=== PATIENT | female | born 1990 | race Caucasian/White ===

== ENCOUNTER 2016-06-24 21:22 | Emergency (ER) | payer SELFPAY ==
[~2016-06-24] VITALS: Ht 152.4 cm; Wt 95.0 kg
[2016-06-24 22:10] VITALS: Ht 152.4 cm; Wt 95.0 kg
[2016-06-24] MEDS ORDERED: ONDANSETRON (ODT) 4 MG TAB ODT STA (23:53)
[2016-06-24 23:59] LABS: URINE BLOOD (Dip) POC 2+ (NEGATIVE)
--- NOTE | 2016-06-25 | ERD ---
ER Documentation Chief Complaint Date/Time DATE: 06/24/16 TIME: 23:57 Chief Complaint Back pain radiates to the upper back, Pain on intercourse HPI 26-year-old female presents here in emergency department for complaints of lower back pain started today, at the last 2 days. Patient is complaining of lower back pain, sharp pain, 4/10 scale, not better or worse with anything. Patient states that she does have some discomfort upon intercourse at times. Patient denies any vaginal discharge. Patient does not have any other sexual partner. Patient does not have any fever or chills. Patient denies any chest or palpitations. Patient denies hematuria or dysuria. Patient denies any trauma in the back. Patient denies any dizziness. LMP 05/20/16 ROS All systems reviewed and are negative except as per history of present illness. Medications Home Meds Reported Medications [none] Unknown Strength No Conflict Check 06/24/16 Allergies Allergies: Coded Allergies: No Known Allergy (Unverified , 06/24/16) PMhx/Soc Medical and Surgical Hx: pt denies Medical Hx History of Surgery: Yes (c section 2015, cholecystectomy) Hx Alcohol Use: No Hx Substance Use: No Hx Tobacco Use: Yes Smoking Status: Light tobacco smoker FmHx Family History: No coronary disease, No diabetes, No other Physical Exam Vitals Vital Signs Date Time Temp Pulse Resp B/P Pulse Ox O2 Delivery O2 Flow Rate FiO2 06/24/16 22:10 98.6 100 18 151/91 99 Physical Exam GENERAL: The patient is well developed and appropriate for usual state of health, in no apparent distress. CHEST: Clear to auscultation bilaterally. There are no rales, wheezes or rhonchi. HEART: Regular rate and rhythm. No murmurs, clicks, rubs or gallops. No S3 or S4. ABDOMEN: Soft, nontender and nondistended. Good bowel sounds. No rebound or guarding. No gross peritonitis. No gross organomegaly or masses. No Burr sign or McBurney point tenderness. BACK: No midline or flank tenderness. EXTREMITIES: Equal pulses bilaterally. There is no peripheral clubbing, cyanosis or edema. No focal swelling or erythema. Full range of motion. Grossly neurovascularly intact. NEURO: Alert and oriented. Cranial nerves 2-12 intact. Motor strength in all 4 extremities with 5/5 strength. Sensation grossly intact. Normal speech and gait. SKIN: There is no apparent rash or petechia. The skin is warm and dry. HEMATOLOGIC AND LYMPHATIC: There is no evidence of excessive bruising or lymphedema. No gross cervical, axillary, or inguinal lymphadenopathy. Result Diagram: 06/25/165 06/25/16 0125 Results 24 hrs Laboratory Tests Test 06/24/16 23:50 06/25/16 00:02 06/25/16 01:25 Urine Bacteria FEW Urine Bilirubin NEGATIVE Urine Clarity CLEAR Urine Color LT. YELLOW Urine Glucose NEGATIVE% Urine Hemoglobin 3+ Urine Ketones NEGATIVE Urine Leukocyte Esterase NEGATIVE Urine Microscopic RBC 10-25/HPF Urine Microscopic WBC 2-5/HPF Urine Nitrite NEGATIVE Urine Specific [place] >=1.030 Urine Squamous Epithelial Cells MODERATE Urine Total Protein NEGATIVE Urine Urobilinogen 0.2 E.U./dL Urine pH 5.5 Bedside Urine Blood 2+ Bedside Urine Glucose (UA) Negative Bedside Urine Ketones (LAB) Negative Bedside Urine Leukocyte Esterase (L Negative Bedside Urine Nitrite (LAB) Negative Bedside Urine Protein (LAB) Negative Bedside Urine pH (LAB) 5.5 Alanine Aminotransferase (ALT/SGPT) 31IU/L Albumin 4.2g/dl Albumin/Globulin Ratio 1.31 Alkaline Phosphatase 93IU/L Anion Gap 16 Aspartate Amino Transf (AST/SGOT) 21IU/L Basophils # 0.010^3/ul Basophils % 0.1% Blood Urea Nitrogen 21mg/dl Calcium Level 9.3mg/dl Carbon Dioxide Level 26mmol/L Chloride Level 106mmol/L Creatinine 0.60mg/dl Direct Bilirubin 0.00mg/dl Eosinophils # 0.310^3/ul Eosinophils % 2.0% Globulin 3.20g/dl Glucose Level 99mg/dl Hematocrit 37.6% Hemoglobin 12.5g/dl Indirect Bilirubin 0.1mg/dl Lipase 91U/L Lymphocytes # 3.610^3/ul Lymphocytes % 26.3% Mean Corpuscular Hemoglobin 26.7pg Mean Corpuscular Hemoglobin Concent 33.2g/dl Mean Corpuscular Volume 80.3fl Mean Platelet Volume 10.2fl Monocytes # 1.110^3/ul Monocytes % 7.7% Neutrophils # 8.710^3/ul Neutrophils % 63.3% Nucleated Red Blood Cells # 0.010^3/ul Nucleated Red Blood Cells % 0.0/100WBC Platelet Count 64996^3/UL Potassium Level 4.1mmol/L Red Blood Count 4.6810^6/ul Red Cell Distribution Width 13.8% Sodium Level 144mmol/L Total Bilirubin 0.1mg/dl Total Protein 7.4g/dl White Blood Count 13.810^3/ul Current Medications Medications (Trade) Dose Ordered Sig/Erica Route PRN Reason Start Time Stop Time Status Last Admin Dose Admin Ondansetron HCl (Zofran Odt) 4 mg ONCE STAT ODT 06/24/16 23:53 06/24/16 23:54 DC 06/25/16 01:08 Patient was given Zofran here in the emergency department. After treatment, patient was able to tolerate po fluids here in the emergency department without any vomiting. There is no signs and symptoms of dehydration. PROCEDURE: CT Abdomen and pelvis without contrast. CLINICAL INDICATION: Abdominal pain. TECHNIQUE: CT scan of the abdomen and pelvis was performed on a multi- detector high-resolution CT scanner. Contiguous axial images were obtained from the lung bases to the ischial tuberosities without intravenous contrast. Coronal and sagittal reformatted images were also obtained. Images were reviewed on the PACS workstation. One or more of the following dose reduction techniques were used: - Automated exposure control. - Adjustment of the mA and/or kV according to patient size. - Use of iterative reconstruction technique. Exam CTD/vol = 16.61 mGy. Total exam DLP = 959.78 mGy-cm. COMPARISON: None. FINDINGS: Evaluation of the lung bases demonstrates a calcified granuloma within the left lower lobe. Abdomen: The liver is normal in size and diffusely low in attenuation consistent with fatty infiltration. There is no focal mass or dilatation of the biliary tree. The patient is status post cholecystectomy. The spleen, pancreas and bilateral adrenal glands are within normal limits. Bilateral kidneys are normal in size with no contour deforming mass identified. There is no radiopaque renal or ureteral calculus identified. There is no hydronephrosis or hydroureter. There is no retroperitoneal adenopathy. The abdominal aorta is of normal caliber. There is no abnormal bowel wall thickening or distension. There is no bowel obstruction or free air. A normal appendix is identified. There is no diverticulosis or diverticulitis. There is no ascites. Pelvis: The bladder is unremarkable. The uterus and adnexa are within normal limits. There is no significant pelvic adenopathy or free fluid. Evaluation of the osseous structures demonstrates no suspicious lytic or blastic lesion. IMPRESSION: No acute abnormality identified within the abdomen and pelvis. Fatty infiltration of the liver. Status post cholecystectomy. .Bert Jefferson MD, MD Date Time Electronically viewed and signed by .Bert Jefferson MD, MD on 06/25/2016 00:46 .T/ CC: JODEE ESTRADA KAI WHAKARURUHAU Procedures/MDM Medical Decision Making: Patient's symptoms most like is consistent with musculoskeletal pain, nonspecific at this time. There is low suspicion for abdominal emergencies at this time. Patients abdominal exam is normal at this time. Patients radiology exam does not show any abdominal emergencies at this time. There is low suspicion for appendicitis, cholecystitis, abdominal aortic aneurysms or peritonitis at this time. There is low suspicion for sepsis. Patient appears well and is hemodynamically stable. No suspicion for pelvic inflammatory disease, urine GC chlamydia was sent. Patient does not have any fever. No bandemia. No suspicion for any sepsis. Disposition: Home. Condition: Stable Prescription ibuprofen, Dunreith, Zofran, Flexeril Instructions: Patient is advised to take medications as prescribed. Patient is advised to rest, increase fluid intake and do brat diet for next 1-2 days and progress as tolerated. Patient is advised that if symptoms are worse, severe abdominal pain, uncontrolled vomiting, high fever, severe flank pain, worst signs and symptoms, to return to the emergency department immediately. Otherwise, patient can follow up with primary care doctor in 5-7 days. Departure Diagnosis: Primary Impression: Back pain Back pain location: low back pain Chronicity: acute Back pain laterality: bilateral Sciatica presence: without sciatica Qualified Code: M54.5 - Acute bilateral low back pain without sciatica Condition: Stable Patient Instructions: Back Pain (Acute Or Chronic) Additional Instructions: Patient is advised to take medications as prescribed. Patient is advised to rest , increase fluid intake and do brat diet for next 1-2 days and progress as tolerated. Patient is advised that if symptoms are worse, severe abdominal pain , uncontrolled vomiting, high fever, severe flank pain, worst signs and symptoms , to return to the emergency department immediately. Otherwise, patient can follow up with primary care doctor in 5-7 days. JODEE ESTRADA NP Jun 25, 2016 00:00
[2016-06-25 00:43] LABS: ADD UMIC YES; URINE BILIRUBIN (Dip) NEGATIVE (NEGATIVE); URINE BLOOD (Dip) 3+ (NEGATIVE); URINE COLOR LT. YELLOW (YELLOW); URINE GLUCOSE (Dip) NEGATIVE (NEGATIVE); URINE KETONES (Dip) NEGATIVE (NEGATIVE); URINE LEUKOCYTE ESTERASE (Dip) NEGATIVE (NEGATIVE); URINE NITRITE (Dip) NEGATIVE (NEGATIVE); URINE TOTAL PROTEIN (Dip) NEGATIVE (NEGATIVE); URINE UROBILINOGEN (Dip) 0.2 E.U./dL (0.1-1.0)
--- NOTE | 2016-06-25 00:47 | RADRPT ---
PROCEDURE: CT Abdomen and pelvis without contrast. CLINICAL INDICATION: Abdominal pain. TECHNIQUE: CT scan of the abdomen and pelvis was performed on a multi-detector high-resolution CT scanner. Contiguous axial images were obtained from the lung bases to the ischial tuberosities wit hout intravenous contrast. Coronal and sagittal reformatted images were also obtained. Images were reviewed on the PACS workstation. One or more of the following dose reduction techniques were used: - Automated exposure control. - Adjustment of the mA and/or kV according to patient size. - Use of iterative reconstruction technique. Exam CTD/vol = 16.61 mGy. Total exam DLP = 959.78 mGy-cm. COMPARISON: None. FINDINGS: Evaluation of the lung bases demonstrates a calcified granuloma within the left lower lobe. Abdomen: The liver is normal in size and diffusely low in attenuation consistent with fatty infiltr ation. There is no focal mass or dilatation of the biliary tree. The patient is status post cholec ystectomy. The spleen, pancreas and bilateral adrenal glands are within normal limits. Bilateral k idneys are normal in size with no contour deforming mass identified. There is no radiopaque renal o r ureteral calculus identified. There is no hydronephrosis or hydroureter. There is no retroperito meghan adenopathy. The abdominal aorta is of normal caliber. There is no abnormal bowel wall thickening or distension. There is no bowel obstruction or free air . A normal appendix is identified. There is no diverticulosis or diverticulitis. There is no asci desiree. Pelvis: The bladder is unremarkable. The uterus and adnexa are within normal limits. There is no significant pelvic adenopathy or free fluid. Evaluation of the osseous structures demonstrates no suspicious lytic or blastic lesion. IMPRESSION: No acute abnormality identified within the abdomen and pelvis. Fatty infiltration of the liver. Status post cholecystectomy. .Bert Jefferson MD, Date Time Electronically viewed and signed by .Bert Jefferson MD, MD on 06/25/2016 00:46 .T/
[2016-06-25 00:57] LABS: SQUAMOUS EPITHELIAL CELL,UR MODERATE
[2016-06-25 00:58] LABS: BACTERIA,URINE FEW
[2016-06-25 01:34] LABS: ADD SCAN DIFF NO
[2016-06-25 01:57] LABS: BASOPHILS % 0.1 % (0.0-2.0); EOSINOPHILS # 0.3 10^3/ul (0.0-0.5); HEMATOCRIT 37.6 % (37.0-47.0); HEMOGLOBIN 12.5 g/dl (12.0-16.0); LYMPHOCYTES # 3.6 10^3/ul (0.8-2.9); LYMPHOCYTES % 26.3 % (15.0-51.0); MEAN CORPUSCULAR HEMOGLOBIN 26.7 pg (29.0-33.0); MEAN CORPUSCULAR HGB CONC 33.2 g/dl (32.0-37.0); MEAN CORPUSCULAR VOLUME 80.3 fl (82.0-101.0); MEAN PLATELET VOLUME 10.2 fl (7.4-10.4); MONOCYTE # 1.1 10^3/ul (0.3-0.9); MONOCYTES % 7.7 % (0.0-11.0); NEUTROPHIL # 8.7 10^3/ul (1.6-7.5); NEUTROPHILS % 63.3 % (39.0-77.0); PLATELET COUNT 241 10^3/UL (140-415); RED BLOOD COUNT 4.68 10^6/ul (4.20-5.40); RED CELL DISTRIBUTION WIDTH 13.8 % (11.5-14.5); WHITE BLOOD COUNT 13.8 10^3/ul (4.8-10.8)
[2016-06-25 01:59] LABS: ALBUMIN 4.2 g/dl (3.3-4.9)
[2016-06-25 02:00] LABS: POTASSIUM 4.1 mmol/L (3.5-5.1)
[2016-06-25 02:02] LABS: BILIRUBIN,INDIRECT 0.1 mg/dl (0-1.1); BILIRUBIN,TOTAL 0.1 mg/dl (0.2-1.3); CREATININE 0.6 mg/dl (0.44-1.00)
[2016-06-25 02:03] LABS: ALBUMIN/GLOBULIN RATIO 1.31; CALCIUM 9.3 mg/dl (8.4-10.2); TOTAL PROTEIN 7.4 g/dl (6.1-8.1)
[2016-06-25] MEDS ORDERED: HYDR-906 PO (03:38)
[2016-06-25] MEDS ORDERED: ONDA4TAB14 PO (03:38)
[2016-06-25] MEDS ORDERED: IBUP-1542 PO (03:38)
[2016-06-25] MEDS ORDERED: CYCL-319 PO (03:38)
[2016-06-25 03:53] VITALS: BP 148/78; PULSE 70; RESP 18; TEMP 98
== END 2016-06-25 03:54 | disposition home or self-care (01) ==
LOC: FTE 21:22
DX: M54.5 Low back pain (principal); F17.210 Nicotine dependence, cigarettes, uncomplicated; R11.10 Vomiting, unspecified
CPT/HCPCS: 36415; 74176; 80053; 81001; 81003; 83690; 85025; 87591

== ENCOUNTER 2016-11-13 13:22 | Outpatient (CLI) | payer MEDICAID, OTHER ==
[~2016-11-13] VITALS: Ht 154.9 cm; Wt 93.3 kg
[~2016-11-13 13:22] MED LIST: CYCL-319 PO; HYDR-906 PO; IBUP-1542 PO; ONDA4TAB14 PO
[2016-11-13] MEDS ORDERED: LACTATED RINGER'S 1,000 ML IV SCH (14:00)
[2016-11-13 14:29] LABS: ADD UMIC YES; UR ASCORBIC ACID NEGATIVE (NEGATIVE); UR BILIRUBIN (Dip) NEGATIVE (NEGATIVE); UR BLOOD (Dip) 2+ mg/dL (NEGATIVE); UR CLARITY CLEAR (CLEAR); UR COLOR YELLOW (YELLOW); UR GLUCOSE (Dip) NEGATIVE (NEGATIVE); UR KETONES (Dip) NEGATIVE (NEGATIVE); UR LEUKOCYTE ESTERASE (Dip) NEGATIVE Leu/ul (NEGATIVE); UR MUCUS FEW /HPF (NONE SEEN); UR NITRITE (Dip) NEGATIVE (NEGATIVE); UR RBC 6 /HPF (0-5); UR SQUAMOUS EPITHELIAL CELL FEW /HPF (FEW); UR TOTAL PROTEIN (Dip) NEGATIVE (NEGATIVE); UR UROBILINOGEN (Dip) NEGATIVE (NEGATIVE)
[2016-11-13 15:16] LABS: ALBUMIN 3.7 g/dl (3.3-4.9); ALBUMIN/GLOBULIN RATIO 1.32; BILIRUBIN,INDIRECT 0.1 mg/dl (0-1.1); BILIRUBIN,TOTAL 0.1 mg/dl (0.2-1.3); CALCIUM 9.1 mg/dl (8.4-10.2); CREATININE 0.49 mg/dl (0.44-1.00); POTASSIUM 4.3 mmol/L (3.5-5.1); TOTAL PROTEIN 6.5 g/dl (6.1-8.1)
--- NOTE | 2016-11-13 17:47 | QN ---
Documentation Comment ip 23 weeks c of abd pain vss exam wnl us wnl a/p iup 23 weeks false labor [facility] NURY ZIMMERMAN MD Nov 13, 2016 17:47
--- NOTE | 2016-11-13 18:04 | RADRPT ---
PROCEDURE: CERVICAL LENGTH ULTRASOUND CLINICAL INDICATION: labor at 25 weeks gestational age. TECHNIQUE: Trans-vaginal imaging of the cervical canal was performed utilizing hyatt-scale imaging. Sagittal and transverse images were obtained. Trans-abdominal images were also obtained. The valentino ges were reviewed on a PACS workstation. COMPARISON: None. FINDINGS: There is a single live intrauterine . heart rate is 161 beats per minute. Position is breech/variable and placenta is anterior grade 1. There is no placenta previa. The cervix is closed with a length of 4.1 cm. IMPRESSION: 1. Cervical length is 4.1 cm. RPTAT: QQ .Lee Pack MD, MD Date Time Electronically viewed and signed by .Lee Pack MD, on 11/13/2016 18:04 .R/
[2016-11-13] MEDS ORDERED: PRENAT PO (18:06)
--- NOTE | 2016-11-13 18:54 | TRIAGE ---
OB Triage Datetime Report Generated by CPN: 11/13/2016 18:54 Datetime: 11/13/2016 16:30 Stage of : OB Triage Labor Evaluation Frequency: 0 Monitor Mode: External Heart Rate FHR Baseline Rate: 145 Monitor Mode: External US FHR Baseline Changes: No Baseline Change Variability: Minimal - Undetectable to <=5 bpm Decelerations: None Pain Assessment Pain Scale: 5 Pain Presence: Intermittent Pain Type: Ache Pain Location: Abdomen Pain Goal: 0 Datetime: 11/13/2016 15:30 Stage of : OB Triage Labor Evaluation Frequency: 0 Monitor Mode: External Heart Rate FHR Baseline Rate: 145 Monitor Mode: External US FHR Baseline Changes: No Baseline Change Variability: Minimal - Undetectable to <=5 bpm Decelerations: None Pain Assessment Pain Scale: 5 Pain Presence: Intermittent Pain Type: Ache Pain Location: Abdomen Pain Goal: 0 Datetime: 11/13/2016 14:42 Stage of : OB Triage Labor Evaluation Frequency: 0 Monitor Mode: External Resting Tone Cool: Relaxed Heart Rate FHR Baseline Rate: 145 Monitor Mode: External US FHR Baseline Changes: No Baseline Change Variability: Minimal - Undetectable to <=5 bpm Pain Presence: Intermittent Pain Type: Ache Pain Location: Abdomen Datetime: 11/13/2016 14:30 Stage of : OB Triage Labor Evaluation Frequency: 0 Monitor Mode: External Heart Rate FHR Baseline Rate: 145 Monitor Mode: External US FHR Baseline Changes: No Baseline Change Variability: Minimal - Undetectable to <=5 bpm Decelerations: None Pain Assessment Pain Scale: 5 Pain Presence: Intermittent Pain Type: Ache Pain Location: Abdomen Pain Goal: 0 Datetime: 11/13/2016 14:01 Stage of : OB Triage Temperature Route: Oral Datetime: 11/13/2016 13:53 Time of Arrival: 11/13/2016 13:35 EGA: 23.5 Arrived By: Ambulatory Arrived From: Home Chief Complaint: lower abdominal apin Movement: Present Rupture of Membranes: Denies Vaginal Bleeding: None Vaginal Discharge: Denies Recent Sexual Intercouse: Denies Abdominal Trauma: Not Applicable Patient Complaints: Nausea; Vomiting Time Provider Notified: 11/13/2016 13:40 Initial Plan: EFM, CMP, IV hydration; cervical length Datetime: 11/13/2016 13:50 Stage of : OB Triage Maternal Assessment Level of Consciousness: Fully Conscious DTR's/Clonus: DTRs 2+ Headache: Denies Blurred Vision: No Respiratory Effort: Regular Rhythm Breath Sounds, Left: Clear and Equal Breath Sounds, Right: Clear and Equal Nausea/Vomiting: Present RUQ Epigastric Pain: Denies Lower Extremities Edema: None Degree: None Upper Extremities Edema: None Degree: None Facial Edema: None Fall Risk Assessment History of Falling: (0) No Secondary Diagnosis: (0) No Ambulatory Aid: (0) Bedrest/Nurse Assist IV Therapy: (0) No Gait: (0) Normal/Bedrest/Immobile Mental Status: (0) Oriented to Own Ability Fall Score: 0 Fall Risk Score Definition: No Risk: No action required Datetime: 11/13/2016 13:49 Stage of : OB Triage Monitor Mode: External Monitor Mode: External US Pain Presence: Intermittent Pain Type: Ache Pain Location: Abdomen Pain Assessment Comments: The patient says she feels pain upon waking up in the morning and when walking.
== END 2016-11-13 18:10 | disposition home or self-care (01) ==
LOC: OBT 13:22 → L-D 13:23 → OBT 18:10
PROVIDERS: ATTEND Obstetrics & Gynecology
DX: O26.892 Other specified pregnancy related conditions, second trimester (principal); Z3A.23 23 weeks gestation of pregnancy; R10.9 Unspecified abdominal pain
CPT/HCPCS: 76817; 80053; 81001; J7120

== ENCOUNTER 2016-12-12 00:04 | Outpatient (CLI) | payer OTHER ==
[~2016-12-12] VITALS: Ht 152.4 cm; Wt 94.0 kg
[~2016-12-12 00:04] MED LIST changes: -CYCL-319 PO; -HYDR-906 PO; -IBUP-1542 PO; -ONDA4TAB14 PO; +PRENAT PO
[2016-12-12 08:04] VITALS: Ht 152.4 cm; Wt 94.0 kg
--- NOTE | 2017-02-25 11:34 | PN ---
Triage Information Date/Time Reason for visit: Uterine contractions Weeks of Gestation 29 weeks /Para Objective Heart Rate: 130's Contractions: >10 Minutes Apart Exam Admitted to triage unit to rule out labor, after close observation, not in labor discharge instructions given recommended to be seen at the clinic return to the hospital if any other concerns and condition Disposition: Discharge ERIC KLEIN MD Feb 25, 2017 11:34
== END 2016-12-12 03:15 | disposition home or self-care (01) ==
LOC: OBT 00:04
PROVIDERS: ATTEND Obstetrics & Gynecology
DX: O62.8 Other abnormalities of forces of labor (principal); Z3A.29 29 weeks gestation of pregnancy
CPT/HCPCS: 76815; 76817

== ENCOUNTER 2017-02-08 22:58 | Outpatient (CLI) | payer OTHER ==
[~2017-02-08] VITALS: Ht 154.9 cm; Wt 94.7 kg
[2017-02-09 00:06] VITALS: BP 116/53; PULSE 83; RESP 17; Ht 154.9 cm; Wt 94.7 kg
[2017-02-09] MEDS ORDERED: FERR325T5 PO (00:08)
[2017-02-09] MEDS ORDERED: LACTATED RINGER'S 1,000 ML IV ONE (02:00)
[2017-02-09] MEDS ORDERED: TERBUTALINE 1 MG/ML INJ SC SCH (02:00)
[2017-02-09] MEDS ORDERED: LACTATED RINGER'S 1,000 ML IV SCH (03:00)
[2017-02-09 03:59] LABS: ADD UMIC YES; UR ASCORBIC ACID 40 mg/dL (NEGATIVE); UR BACTERIA FEW /HPF (NONE SEEN); UR BILIRUBIN (Dip) NEGATIVE (NEGATIVE); UR BLOOD (Dip) NEGATIVE (NEGATIVE); UR CLARITY SLIGHTLY CLOUDY (CLEAR); UR COLOR YELLOW (YELLOW); UR GLUCOSE (Dip) NEGATIVE (NEGATIVE); UR KETONES (Dip) NEGATIVE (NEGATIVE); UR LEUKOCYTE ESTERASE (Dip) TRACE Leu/ul (NEGATIVE); UR MUCUS FEW /HPF (NONE SEEN); UR NITRITE (Dip) NEGATIVE (NEGATIVE); UR RBC 4 /HPF (0-5); UR SPECIFIC GRAVITY (Dip) 1.035 (1.003-1.030); UR SQUAMOUS EPITHELIAL CELL FEW /HPF (FEW); UR TOTAL PROTEIN (Dip) 1+ mg/dl (NEGATIVE); UR UROBILINOGEN (Dip) NEGATIVE (NEGATIVE)
--- NOTE | 2017-02-09 07:36 | TRIAGE ---
OB Triage Datetime Report Generated by CPN: 02/09/2017 07:36 Datetime: 02/09/2017 06:06 Membrane Status: Intact Datetime: 02/09/2017 05:01 Stage of : OB Triage Labor Evaluation Frequency: Irregular Monitor Mode: External Duration (sec)2399: 40-50 Quality: Mild Pattern: Normal: <= 5 Contractions in 10 Minutes Resting Tone [place]: Relaxed Heart Rate FHR Baseline Rate: 130 Monitor Mode: External US Variability: Moderate 6-25 bpm Accelerations: 15X15 Decelerations: None Datetime: 02/09/2017 05:00 Stage of : OB Triage Assessment Type: Triage Datetime: 02/09/2017 04:00 Stage of : OB Triage Labor Evaluation Frequency: Irregular Monitor Mode: External Duration (sec)2399: 40-90 Quality: Mild Pattern: Normal: <= 5 Contractions in 10 Minutes Resting Tone [place]: Relaxed Heart Rate FHR Baseline Rate: 125 Monitor Mode: External US Variability: Moderate 6-25 bpm Accelerations: 15X15 Decelerations: None Category: Category I Datetime: 02/09/2017 03:00 Stage of : OB Triage Labor Evaluation Frequency: Irregular Monitor Mode: External Duration (sec)2399: 40-80 Quality: Mild Pattern: Normal: <= 5 Contractions in 10 Minutes Resting Tone [place]: Relaxed Heart Rate FHR Baseline Rate: 120 Monitor Mode: External US FHR Baseline Changes: No Baseline Change Variability: Moderate 6-25 bpm Accelerations: 15X15 Decelerations: None Datetime: 02/09/2017 02:45 Stage of : OB Triage Datetime: 02/09/2017 02:00 Stage of : OB Triage Labor Evaluation Frequency: Irregular Monitor Mode: External Duration (sec)2399: 40-60 Quality: Mild Pattern: Normal: <= 5 Contractions in 10 Minutes Resting Tone [place]: Relaxed Heart Rate FHR Baseline Rate: 120 Monitor Mode: External US FHR Baseline Changes: No Baseline Change Variability: Moderate 6-25 bpm Accelerations: 15X15 Decelerations: None Category: Category I Datetime: 02/09/2017 01:33 Stage of : OB Triage Datetime: 02/09/2017 01:15 Vaginal Exam Dilatation (cms): 0.0 Effacement (%): 0 Station: -3 Exam By: PENELOPE Vega Vaginal Bleeding: None Cervix, Consistency: Moderate Cervix, Position: Posterior Datetime: 02/09/2017 01:00 Stage of : OB Triage Labor Evaluation Frequency: Irregular Monitor Mode: External Duration (sec)2399: 40-100 Quality: Mild Pattern: Normal: <= 5 Contractions in 10 Minutes Resting Tone [place]: Relaxed Heart Rate FHR Baseline Rate: 120 Monitor Mode: External US Variability: Moderate 6-25 bpm Accelerations: 15X15 Decelerations: None Category: Category I Datetime: 02/09/2017 00:00 Stage of : OB Triage Labor Evaluation Frequency: Irregular Monitor Mode: External Duration (sec)2399: 40-90 Quality: Mild Pattern: Normal: <= 5 Contractions in 10 Minutes Resting Tone [place]: Relaxed Heart Rate FHR Baseline Rate: 125 Monitor Mode: External US Variability: Moderate 6-25 bpm Accelerations: 15X15 Decelerations: Variable (Annotations: Possible variable decels noted with loss of contact) Datetime: 02/08/2017 23:20 Stage of : OB Triage Assessment Type: Triage Maternal Assessment Level of Consciousness: Fully Conscious DTR's/Clonus: DTRs 2+; No Clonus Headache: Denies Blurred Vision: No Respiratory Effort: Unlabored; Regular Rhythm; Equal Expansion Breath Sounds, Left: Clear and Equal Breath Sounds, Right: Clear and Equal Nausea/Vomiting: Denies RUQ Epigastric Pain: Denies Lower Extremities Edema: Bilateral Lower Extremities Degree: 1+ Upper Extremities Edema: None Degree: None Facial Edema: None Temperature Route: Oral Fall Risk Assessment History of Falling: (0) No Secondary Diagnosis: (0) No Ambulatory Aid: (0) Bedrest/Nurse Assist IV Therapy: (0) No Gait: (0) Normal/Bedrest/Immobile Mental Status: (0) Oriented to Own Ability Fall Score: 0 Fall Risk Score Definition: No Risk: No action required Pain Assessment Pain Scale: 6 Pain Presence: Intermittent Pain Type: Cramping; Ache Pain Location: Abdomen; Back Pain Relief Measures: Comfort Measures Datetime: 02/08/2017 23:16 Time of Arrival: 02/08/2017 22:55 EGA: 36.1 Arrived By: Wheelchair Arrived From: Home Chief Complaint: Vaginal _ back pain Movement: Present Contractions: Irregular Time Contractions Began: 02/08/2017 23:30 Rupture of Membranes: Denies Vaginal Bleeding: None Vaginal Discharge: Denies Recent Sexual Intercouse: Denies Abdominal Trauma: Not Applicable Patient Complaints: Cramping; Back Pain Time Provider Notified: 02/09/2017 01:33 Initial Plan: EFM x2 Datetime: 12/12/2016 00:40 EGA: 23.5 Datetime: 12/12/2016 00:37 Fall Score: 15 Fall Risk Score Definition: No Risk: No action required Datetime: 12/12/2016 00:25 Stage of : OB Triage Monitor Mode: External Contraction Comments: applied Monitor Mode: External US Comments: APPLIED Datetime: 11/13/2016 13:53 EGA: 23.5 Datetime: 11/13/2016 13:50 Fall Score: 0 Fall Risk Score Definition: No Risk: No action required
--- NOTE | 2017-03-04 16:55 | PN ---
Triage Information Date/Time Reason for visit: Uterine contractions Weeks of Gestation 36w1d /Para Diabetes: none Hypertention: none Objective Heart Rate: 130's Contractions: >10 Minutes Apart Exam close /long Results/Medications Medications IV Disposition: Discharge Assessment/Plan iup 36w1d d/s home with routine labor instructions OLIVER SALGADO MD Mar 04, 2017 16:55
== END 2017-02-09 05:19 | disposition home or self-care (01) ==
LOC: OBT 22:58 → L-D 23:00 → OBT 02-09 05:19
PROVIDERS: ATTEND Obstetrics & Gynecology
DX: O62.9 Abnormality of forces of labor, unspecified (principal); Z3A.36 36 weeks gestation of pregnancy
CPT/HCPCS: 36415; 81001; 87086; 96360; 96361; 96372; J3105; J7120; Z7500; G0463

== ENCOUNTER 2017-02-21 10:38 | Outpatient (CLI) | payer OTHER ==
[~2017-02-21] VITALS: Ht 154.9 cm; Wt 96.0 kg
[~2017-02-21 10:38] MED LIST changes: +FERR325T5 PO
[2017-02-21 10:51] VITALS: Ht 154.9 cm; Wt 96.0 kg
[2017-02-21 10:52] VITALS: BP 125/78; PULSE 97; RESP 20
--- NOTE | 2017-02-21 12:55 | RADRPT ---
PROCEDURE: US biophysical profile. CLINICAL INDICATION: Decreased motion. TECHNIQUE: Multiple sonographic images of the uterus were obtained. The images were revi ewed on a PACS workstation. COMPARISON: No prior studies are available for comparison. FINDINGS: There is a single live intrauterine gestation. heart rate is 150 beats per minute. The position is cephalic. The placenta is anterior grade II with no abruption or previa. The ADRIANNE is 12.7 cm. (Normal = 5-20 cm.) Breathing Movement: 2 Gross Body Movement: 2 Tone: 2 Qualitative Amniotic Fluid Volume: 2 TOTAL: 8 IMPRESSION: 1. The biophysical score is 8/8. RPTAT: QQ .Lee Pack MD, MD Date Time Electronically viewed and signed by .Lee Pack MD, on 02/21/2017 12:55 .R/
--- NOTE | 2017-02-21 13:42 | CONS ---
Date/Time of Note Date/Time of Note DATE: 02/21/17 TIME: 13:34 Consultation Date/Type/Reason Admit Date/Time February 21, 2017 OB triage consult This patient is a 27 years old 2 para 1 who had her first delivery by section. Her estimated date of confinement is March 07, 2017 which makes her 38 weeks today . she came to the hospital complaining of cramping and low back pain since yesterday. She is already scheduled for repeat section on March 05 2017. On examination she is a somewhat overweight woman close to term. her complaint is general lower abdomen.and back aches and pain. On examination; abdomen is soft.she does not have very many contractions. heart tracing is reactive with good variability and acceleration no decelerations. Her vital signs are normal with the blood pressure 125/78, pulse rate of 97, respiration 18,, temperature 98. heart rates about 140. On pelvic examination her cervix is closed thick and high, the membranes are intact Constitutional: chills, diaphoresis, disoriented, febrile, improved, no complaints, other, poor po, requiring IVF, requiring O2 Eyes: discharge, no complaints, other, pain, redness, visual change ENT: bleeding, congestion, discharge, dysphagia, no complaints, other, pain, sore throat Respiratory: cough, no complaints, other, pain, pleuritic pain, shortness of breath, sputum, wheezing Cardiovascular: chest pain, edema, lightheadedness, no complaints, orthopenea, other, palpitations, paroxysmal nocturnal dyspnea Gastrointestinal: blood, constipation, decreased appetite, diarrhea, flatus, nausea, no complaints, other, pain, passing stool, vomiting Genitourinary: bleeding, discharge, dysuria, flank pain, hematuria, no complaints Musculoskeletal: back pain, bone/joint pain, neck pain, no complaints, other, restricted range of motion, swelling Skin: bruising, erythema, laceration, no complaints, other, pruritis, rash, skin lesions Endocrine: No dry skin, No no complaints, No other, No polydypsia, No polyuria , No temp intolerance Lymphatic: No adenopathy, No lymphadema, No no complaints, No other, No tender nodes Additional Comments On ultrasound study report is single live intrauterine gestation with heart rate 150 bpm, in vertex presentation. placenta was anterior, amniotic fluid index is 12.7 cm. Her biophysical profile was 8/8. With these finding patient was discharged home with instruction to rest at home and for any evidence of labor or bleeding she can come back to triage again , other than that she will have her next week Social History Smoking Status: Never smoker Exam/Review of Systems Vital Signs Vitals Vital Signs Date Time Temp Pulse Resp B/P Pulse Ox O2 Delivery O2 Flow Rate FiO2 02/21/17 10:52 98.0 97 20 125/78 Room Air VALDEMAR FOSTER MD Feb 21, 2017 13:42
== END 2017-02-21 13:50 | disposition home or self-care (01) ==
LOC: OBT 10:38 → L-D 10:39 → OBT 13:50
PROVIDERS: ATTEND Obstetrics & Gynecology
DX: O26.893 Other specified pregnancy related conditions, third trimester (principal); Z3A.38 38 weeks gestation of pregnancy; M54.5 Low back pain; O34.219 Maternal care for unspecified type scar from previous cesarean delivery
CPT/HCPCS: 76818; Z7500; G0463

== ENCOUNTER 2017-03-01 09:18 | Inpatient (IN) | payer OTHER ==
[~2017-03-01] VITALS: Ht 154.9 cm; Wt 96.5 kg
[~2017-03-01 09:18] MED LIST changes: +EPHEDrine SULFATE 50 MG/5 ML SYG ONE
[2017-03-01 09:38] VITALS: Ht 154.9 cm; Wt 96.5 kg
[2017-03-01] MEDS ORDERED: OXYTOCIN 30 UNITS/LR 500 ML IV PRN ×2 (10:00→17:30)
[2017-03-01] MEDS ORDERED: CEFAZOLIN 2 GM/50 ML (PMX) 50 ML IV SCH (10:00)
[2017-03-01] MEDS ORDERED: MISOPROSTOL 200 MCG TAB PR PRN ×2 (10:00→17:30)
[2017-03-01] MEDS ORDERED: CARBOPROST 250 MCG INJ IM PRN ×2 (10:00→17:30)
[2017-03-01] MEDS ORDERED: OXYTOCIN 30 UNITS/LR 500 ML IVPB ONE (10:00)
[2017-03-01] MEDS ORDERED: METHYLERGONOVINE 0.2 MG INJ IM PRN ×2 (10:00→17:30)
[2017-03-01] MEDS ORDERED: OXYTOCIN 30 UNITS/LR 500 ML IV SCH (10:00)
[2017-03-01 11:24] VITALS: BP 122/73; PULSE 68; RESP 20
[2017-03-01 11:56] LABS: BASOPHILS % 0.1 % (0.0-2.0); EOSINOPHILS # 0.1 10^3/ul (0.0-0.5); EOSINOPHILS % 0.8 % (0.0-7.0); HEMATOCRIT 32.2 % (37.0-47.0); HEMOGLOBIN 10.4 g/dl (12.0-16.0); LYMPHOCYTES # 1.7 10^3/ul (0.8-2.9); LYMPHOCYTES % 18.9 % (15.0-51.0); MEAN CORPUSCULAR HEMOGLOBIN 24.2 pg (29.0-33.0); MEAN CORPUSCULAR HGB CONC 32.3 g/dl (32.0-37.0); MEAN CORPUSCULAR VOLUME 74.9 fl (82.0-101.0); MEAN PLATELET VOLUME 10.7 fl (7.4-10.4); MONOCYTE # 0.6 10^3/ul (0.3-0.9); MONOCYTES % 6.6 % (0.0-11.0); NEUTROPHIL # 6.5 10^3/ul (1.6-7.5); PLATELET COUNT 245 10^3/UL (140-415); RED CELL DISTRIBUTION WIDTH 15.3 % (11.5-14.5); WHITE BLOOD COUNT 8.9 10^3/ul (4.8-10.8)
[2017-03-01 12:29] LABS: INR 0.93; PARTIAL THROMBOPLASTIN TIME 31.5 Sec (25.0-35.0); PROTIME 12.5 Sec (12.2-14.2)
[2017-03-01] MEDS ORDERED: CITRIC ACID/SODIUM CITRATE 15 ML CUP PO ONE (12:30)
[2017-03-01] MEDS ORDERED: ONDANSETRON 4 MG INJ IV ONE (12:30)
[2017-03-01] MEDS: LACTATED RINGER'S 1,000 ML IV SCH ×2 (12:44→13:02)
[2017-03-01] MEDS ORDERED: METOCLOPRAMIDE 10 MG INJ ONE (12:56)
[2017-03-01] MEDS ORDERED: KETOROLAC 30 MG INJ ONE (12:56)
[2017-03-01] MEDS ORDERED: morphine SULFATE/PF (10 MG/10 ML) INJ ONE (12:56)
[2017-03-01] MEDS ORDERED: OXYTOCIN 30 UNITS/LR 500 ML IV ONE (14:09)
--- NOTE | 2017-03-01 14:25 | OPR ---
Operative Report Planned Procedure Free Text/Dictation 26 years old EDC March 07, 2017 history of previous admitted at 39 weeks and 1 day for repeat Procedure date Mar 01, 2017 Procedure(s) Repeat Performed by see signature line Assisting provider: OLIVER SALGADO MD Anesthesiologist: DEBRA RICHARDSON MD Pre-procedure diagnosis 39 weeks 1 day previous Anesthesia Type: spinal Procedure Description Under satisfactory spinal [] anesthesia, the patient was prepped and draped and placed in a supine position, tilted to the left. Pfannenstiel incision was made , carried through the subcutaneous tissue. Bleeders brought under control with electrocautery. Fascia incised to the length of the incision. Rectus muscles from the fascia, divided midline. Peritoneum exposed, entered through a transverse incision. Exploration of abdomen revealed gravid uterus normal- appearing tubes and ovary. Bladder flap was developed. Transverse incision was made in the lower segment of the uterus. Amniotic sac ruptured. Clear] amniotic fluid noted. [Light baby boy was delivered from unengaged vertex] Nasal oropharyngeal suction was performed. baby was handed to the team for immediate attention she received 2000s of Pitocin. placenta was delivered manually intact. Uterine cavity was cleaned with wet sponge and drainage established. Uterus closed in 2 layers using Monocryl #1] in continuous fashion. Peritoneal cavity irrigated with warm saline. Sponge, needle and instrument count reported to be correct. Abdominal peritoneum closed with 0 chromic catgut [] continuously. Rectus muscle approximated with [0 chromic catgut]. Fascia closed with [#1 PDS], subcutaneous tissue approximated with few interrupted 2-0 chromic catgut skin closed with N sorb. Estimated blood loss 600 []mL. Urine bag contained [200]mL of clear urine patient tolerated procedure well transferred to recovery room in good condition Post-Procedure Findings: Live Baby boy 9 and 9 waited 3665 gm Estimated blood loss: other (600 cc) Specimen(s): no Grafts/Implants: no Complication(s): no Pt Condition post procedure: stable Physician Certification I, the undersigned physician, hereby certify that I have discussed the procedure described in this consent form with this patient (or the patient's legal client care representative), including: * The risk and benefits of the procedure; * Any adverse reactions that may reasonably be expected to occur; * Any alternative efficacious methods of treatment which may be medically viable ; * The potential problems that may occur during recuperation; * Potential for blood transfusion and associated risks/benefits; and * Any research or economic interest I may have regarding this treatment. I further certify that the patient/legally responsible person was encouraged to ask question and that all questions were answered. ERIC KLEIN MD Mar 01, 2017 14:25
[2017-03-01] MEDS ORDERED: morphine (1 MG/ML) 10ML SYRINGE IV PRN ×3 (14:30)
[2017-03-01] MEDS ORDERED: morphine 2 MG INJ IV PRN ×2 (14:30)
[2017-03-01] MEDS ORDERED: DIPHENHYDRAMINE 50 MG INJ IV PRN ×2 (14:30)
[2017-03-01] MEDS ORDERED: ONDANSETRON 4 MG INJ IV PRN ×2 (14:30)
[2017-03-01] MEDS ORDERED: NALOXONE (0.4 MG/ML) INJ IV PRN (14:30)
[2017-03-01] MEDS ORDERED: morphine 4 MG/ML VIAL IV PRN (14:30)
--- NOTE | 2017-03-01 14:31 | HP ---
Date/Time of Note Date/Time of Note DATE: 03/01/17 TIME: 14:25 OB - History Hx of Present Free Text/Dictation This is a 26 years old female EDC March 07, 2017 admitted to [facility] at 39 weeks and 1 day with a history of previous C- section ,this patient has been under the care of the [facility] her was not complicated with gestational diabetes -induced hypertension . Past history gallbladder surgery 2014 Chief Complaint: 39 weeks 1 day history of previous admitted for repeat Estimated Due Date: Mar 07, 2017 : 2 Para: 1 Care: Good Care Ultrasounds: Normal mid trimester US Medical Complications: Musculoskeletal Past Family/Social History * Past Medical, Surgical, Family and Obstetric Histories reviewed from chart. Rubella: immune RPR/VDRL: Negative GBS Status: Negative HBsAG: Negative OB Admission Exam Vital Signs Vital Signs Vital Signs Date Time Temp Pulse Resp B/P Pulse Ox O2 Delivery O2 Flow Rate FiO2 03/01/17 11:24 99.8 68 20 122/73 Room Air Physical Exam HEENT: WNL Heart: Rhythm Normal Lungs: Clear, Equal Abdomen: WNL Extremities: Normal Reflexes: Normal Cervical Dilatation: None Effacement: Other (Deferred) Heart Rate: 130's Accelerations: Accelerations Present Decelerations: No Decelerations Varibility: Moderate Contractions on Admission: None Last 72 hours Lab Results CBC & BMP 03/01/17 11:23 OB Assessment/Plan Reason for admission: other (39 weeks 1 day history of previous admitted for repeat ) Other plan: 26 years EDC 03/07/2017 history of previous admitted at 39 weeks and 1 day for repeat complication of the surgery including but not limited to bowel and bladder injury infection hemorrhage wound hematoma, she is willing to proceed with the operation ERIC KLEIN MD Mar 01, 2017 14:31
[2017-03-01 17:25] VITALS: BP 135/72; PULSE 75; RESP 19
[2017-03-01] MEDS ORDERED: LANOLIN 7 GM TUBE TOP PRN (17:30)
[2017-03-01] MEDS: KETOROLAC 30 MG INJ IV PRN (17:31)
[2017-03-01 17:40] VITALS: BP 115/56; PULSE 56; RESP 19
[2017-03-01] MEDS: OXYTOCIN 30 UNITS/LR 500 ML IV SCH ×2 (17:49→23:03)
[2017-03-01 18:10] VITALS: BP 125/53; PULSE 83; RESP 18
[2017-03-01 19:35] VITALS: BP 130/70; PULSE 95; RESP 16
[2017-03-01] MEDS ORDERED: CEFAZOLIN 1 GM/50 ML (PMX) 50 ML IVPB SCH (20:00)
[2017-03-01] MEDS: SENNA/DOCUSATE NA (8.6MG/50MG) TAB PO SCH (20:39)
[2017-03-02] VITALS: BP 105/57; RESP 18
[2017-03-02] MEDS: OXYTOCIN 30 UNITS/LR 500 ML IV SCH ×3 (03:29→09:24)
[2017-03-02 04:35] VITALS: BP 100/52; PULSE 92; RESP 18
--- NOTE | 2017-03-02 07:44 | PN ---
Date/Time of Note Date/Time of Note DATE: 03/02/17 TIME: 07:42 Assessment/Plan VTE Prophylaxis VTE Prophylaxis Intervention: ambulation Lines/Catheters IV Catheter Type (from Nrsg): Peripheral IV Subjective 24 Hr Interval Summary Free Text/Dictation Anesthesia Note: A 27 year female s/p duramorph wirh spinal is doing fine. no Pain, n/v, itching , headache, sensory or motor deficit. back is clean, no inflammation. care per surgery Exam/Review of Systems Vital Signs Vitals Vital Signs Date Time Temp Pulse Resp B/P Pulse Ox O2 Delivery O2 Flow Rate FiO2 03/02/17 04:35 98.4 92 18 100/52 94 Room Air 03/02/17 03:37 21 Intake and Output 03/01/17 03/01/17 03/02/17 15:00 23:00 07:00 Intake Total 1000 ml 875 ml Output Total 200 ml 2175 ml Balance 800 ml -1300 ml Results Result Diagram: 03/01/17 1123 Results 24 hrs Laboratory Tests Test 03/01/17 11:23 White Blood Count 8.9 # Red Blood Count 4.30 Hemoglobin 10.4 L Hematocrit 32.2 L Mean Corpuscular Volume 74.9 L Mean Corpuscular Hemoglobin 24.2 L Mean Corpuscular Hemoglobin Concent 32.3 Red Cell Distribution Width 15.3 H Platelet Count 245 Mean Platelet Volume 10.7 H Neutrophils % 73.0 Lymphocytes % 18.9 Monocytes % 6.6 Eosinophils % 0.8 Basophils % 0.1 Nucleated Red Blood Cells % 0.0 Neutrophils # 6.5 Lymphocytes # 1.7 Monocytes # 0.6 Eosinophils # 0.1 Basophils # 0.0 Nucleated Red Blood Cells # 0.0 Prothrombin Time 12.5 Prothrombin Time Ratio 1.0 INR International Normalized Ratio 0.93 Activated Partial Thromboplast Time 31.5 Rapid Plasma Reagin NONREACTIVE Hepatitis B Surface Antigen NEGATIVE Medications Medications Current Medications Naloxone HCl (Narcan) 0.1 mg Q2M PRN IV FOR RESP RATE 8 OR LESS; Start at 14:30; Stop 03/02/17 at 14:29 Ketorolac Tromethamine (Toradol) 30 mg Q6H PRN IV PAIN Last administered on t 17:31; Admin Dose 30 MG; Start 03/01/17 at 14:30; Stop 03/02/17 at 14: 29 Morphine Sulfate (morphine) 3 mg Q2 PRN IV BREAKTHROUGH PAIN; Start 03/01/17 at 14:30; Stop 03/02/17 at 14:29 Morphine Sulfate (morphine) 2 mg Q3H PRN IV PAIN LEVEL 1-5; Start 03/01/17 at 14:30; Stop 03/02/17 at 14:29 Morphine Sulfate (morphine) 4 mg Q3H PRN IV PAIN LEVEL 6-10; Start 03/01/17 at 14:30; Stop 03/02/17 at 14:29 Diphenhydramine HCl (Benadryl) 25 mg Q6H PRN IV ITCHING; Start 03/01/17 at 14: 30; Stop 03/02/17 at 14:29 Ondansetron HCl (Zofran Inj) 4 mg Q6H PRN IV NAUSEA AND/OR VOMITING Last administered on 03/01/17 17:45; Admin Dose 4 MG; Start 03/01/17 at 14:30; Stop 03/02/17 at 14:29 Acetaminophen/ Hydrocodone Bitart ([place] (5/325)) 1 tab Q4H PRN PO PAIN LEVEL 4 -6; Start 03/02/17 at 14:30 Acetaminophen/ Hydrocodone Bitart ([place] (5/325)) 2 tab Q4H PRN PO PAIN LEVEL 7 -10; Start 03/02/17 at 14:30 Oxycodone/ Acetaminophen (Percocet (5/ 325)) 1 tab Q4H PRN PO PAIN LEVEL 4-6; Start 03/02/17 at 14:30 Oxycodone/ Acetaminophen (Percocet (5/ 325)) 2 tab Q4H PRN PO PAIN LEVEL 7-10; Start 03/02/17 at 14:30 Ibuprofen (Motrin) 600 mg Q6 PO ; Start 03/02/17 at 18:00 Simethicone (Mylicon) 160 mg Q8H PRN PO DISTENSION/GAS/BLOATING; Start at 17:30 Senna/Docusate Sodium (Senokot-S) 1 tab BID PO Last administered on 03/01/17 20:39; Admin Dose 1 TAB; Start 03/01/17 at 21:00 Diphtheria/ Tetanus/Acell Pertussis 0.5 ml 0.5 ml ONCE ONCE IM* ; Start at 09:00; Stop 03/04/17 at 09:01 Oxytocin/Lactated Ringer's 500 ml @ 0 mls/hr ONCE PRN IV For Hemorrhage Management; Start 03/01/17 at 17:30 Methylergonovine Maleate (Methergine) 0.2 mg ONCE PRN IM VAGINAL BLEEDING; Start 03/01/17 at 17:30 Carboprost Tromethamine (Hemabate) 250 mcg ONCE PRN IM VAGINAL BLEEDING; Start 03/01/17 at 17:30 Misoprostol 1000 mcg 1,000 mcg ONCE PRN MT VAGINAL BLEEDING; Start 03/01/17 at 17:30 Oxytocin/Lactated Ringer's 500 ml @ 125 mls/hr Q4H IV Last administered on t 03:29; Admin Dose 125 MLS/HR; Start 03/01/17 at 17:24 Influenza Virus Vaccine (Fluzone) 0.5 ml ONCE ONCE IM* ; Start 03/02/17 at 20: 00; Stop 03/02/17 at 20:01 DEBRA RICHARDSON MD Mar 02, 2017 07:44
[2017-03-02 07:45] VITALS: BP 121/59; PULSE 97; RESP 18
[2017-03-02] MEDS: SENNA/DOCUSATE NA (8.6MG/50MG) TAB PO SCH ×2 (08:12→21:00)
[2017-03-02] MEDS ORDERED: LACTATED RINGER'S 1,000 ML IV SCH (08:30)
[2017-03-02 10:59] LABS: BASOPHILS % 0.2 % (0.0-2.0); EOSINOPHILS % 0.2 % (0.0-7.0); HEMATOCRIT 25.4 % (37.0-47.0); HEMOGLOBIN 8.3 g/dl (12.0-16.0); LYMPHOCYTES # 1.4 10^3/ul (0.8-2.9); LYMPHOCYTES % 13.5 % (15.0-51.0); MEAN CORPUSCULAR HEMOGLOBIN 24.6 pg (29.0-33.0); MEAN CORPUSCULAR HGB CONC 32.7 g/dl (32.0-37.0); MEAN CORPUSCULAR VOLUME 75.1 fl (82.0-101.0); MEAN PLATELET VOLUME 10.7 fl (7.4-10.4); MONOCYTE # 0.8 10^3/ul (0.3-0.9); MONOCYTES % 7.7 % (0.0-11.0); NEUTROPHIL # 8.2 10^3/ul (1.6-7.5); NEUTROPHILS % 77.8 % (39.0-77.0); PLATELET COUNT 189 10^3/UL (140-415); RED BLOOD COUNT 3.38 10^6/ul (4.20-5.40); RED CELL DISTRIBUTION WIDTH 15.4 % (11.5-14.5); WHITE BLOOD COUNT 10.5 10^3/ul (4.8-10.8)
[2017-03-02 12:00] VITALS: BP 122/61; PULSE 88; RESP 19
[2017-03-02] MEDS: KETOROLAC 30 MG INJ IV PRN (12:05)
[2017-03-02] MEDS ORDERED: OXYCODONE/ACETAMINOPHEN (5/325) TAB PO PRN ×2 (14:30)
[2017-03-02] MEDS ORDERED: HYDROCODONE/APAP (5/325) TAB PO PRN ×2 (14:30)
[2017-03-02 16:00] VITALS: BP 118/63; PULSE 86; RESP 19
--- NOTE | 2017-03-02 16:45 | QN ---
Documentation Comment Post day 1 Afebrile, vital signs are stable, abdomen soft incision dry bowel sounds present she had normal bowel movement extremities normal ambulation encouraged ERIC KLEIN MD Mar 02, 2017 16:45
[2017-03-02] MEDS: IBUPROFEN 600 MG TAB PO SCH (17:25)
[2017-03-02 20:00] VITALS: BP 122/66; PULSE 90; RESP 16
[2017-03-02] MEDS ORDERED: INFLUENZA VIRUS VACCINE 0.5 ML SYG IM* ONE (20:00)
[2017-03-03] MEDS: IBUPROFEN 600 MG TAB PO SCH ×4 (00:11→17:28)
[2017-03-03 04:10] VITALS: BP_SYST 110; PULSE 83; RESP 18
[2017-03-03 08:00] VITALS: BP 115/72; PULSE 84; RESP 18
[2017-03-03] MEDS: SENNA/DOCUSATE NA (8.6MG/50MG) TAB PO SCH ×2 (09:00→21:00)
--- NOTE | 2017-03-03 09:53 | QN ---
Documentation Comment Post day 2 Afebrile, vital signs are stable, abdomen soft, good bowel sounds, had bowel movement, extremity normal, ambulation encouraged, plan of a.m. discharge discussed. ERIC KLEIN MD Mar 03, 2017 09:53
[2017-03-03 16:00] VITALS: BP 120/76; PULSE 80; RESP 19
[2017-03-03 20:00] VITALS: BP 125/87; PULSE 78; RESP 18
[2017-03-04] MEDS: IBUPROFEN 600 MG TAB PO SCH ×3 (00:24→12:02)
[2017-03-04 04:00] VITALS: BP 126/71; PULSE 87; RESP 18
[2017-03-04 08:00] VITALS: BP 107/54; PULSE 77; RESP 17
[2017-03-04] MEDS ORDERED: DIPHTH/TET/ACEL PERTUSS (ADULT) 0.5 ML VIAL IM* ONE (09:00)
[2017-03-04] MEDS: SENNA/DOCUSATE NA (8.6MG/50MG) TAB PO SCH (09:00)
--- NOTE | 2017-03-04 10:20 | PD.PPDC ---
CORPORATE INTERN Discharge Instruction Condition Patient Condition: Good Diet Diet: Resume Regular Diet Activity/Restrictions Activity: Normal Activity May Shower Restrictions: No Exercising No Lifting No Driving No Sexual Activity Nothing in the Vagina No [place] No Tampons, douche Wound/Drain Care Instructions Wound/Drain Care Instructions: Remove Steri Strips in 1 week Follow-up Follow-up with Physician: 1, Week/Weeks Provider Information: Post instructions given recommended to make appointment to be seen at the clinic in 1 week Return to clinic for HOUSEKEEPER/CUSTODIAN/LAUNDRY WORKER Instructions: Fever greater than 101 Chills Worsening abdominal pain Excessive Vaginal Bleeding More than 2 pads per hour Unable to tolerate diet OB Instructions: Breast Tenderness Depression Blurried Vision Headache Surgical Instructions: Incisional Drainage Incisional Redness ERIC KLEIN MD Mar 04, 2017 10:20
--- NOTE | 2017-03-04 10:24 | DS ---
Date/Time of Note Date/Time of Note DATE: 03/04/17 TIME: 10:23 Discharge Summary Admission/Discharge Info Admit Date/Time Mar 01, 2017 at 09:18 Discharge Date/Time March 04, 2017 at 10:20 AM Discharge Diagnosis Post repeat day 3 Patient Condition: Fair Procedures Repeat Hx of Present Illness 39 weeks history of previous Hospital Course Satisfactory recovery uneventful Home Meds Reported Medications Ferrous Sulfate (Ferrous Sulfate) 325 Mg Tablet., 325 MG PO BID 02/09/17 Multivit/Min/Fol Ac/Iron/Pren* ( S*) 1 Tab Tab, 1 TAB PO DAILY, TAB 11/13/16 Follow-up Plan Post instructions given recommended to make appointment to be seen at the clinic in 1 week Primary Care Provider Gregg Ernandez Time spent on discharge: < 30 minutes ERIC KLEIN MD Mar 04, 2017 10:24
== END 2017-03-04 14:20 | disposition home or self-care (01) | DRG 766 ==
LOC: L-D 09:18 → PP1 17:16
PROVIDERS: ADMIT Obstetrics & Gynecology; ATTEND Obstetrics & Gynecology
PROC: 10D00Z1 Extraction of Products of Conception, Low, Open Approach (ICD-10-PCS; principal; 2017-03-01 12:30)
DX: O34.219 Maternal care for unspecified type scar from previous cesarean delivery (principal); Z37.0 Single live birth; Z3A.39 39 weeks gestation of pregnancy
CPT/HCPCS: 85025; 85610; 85730; 86592; 86850; 86900; 86901; 87340; 90686; 90715; 94760; 99464; J0690; J1200; J1885; J2274; J2405; J2590; J2765; J7120